=== PATIENT | female | born 1940 | race Caucasian/White ===

== ENCOUNTER 2017-05-29 05:41 | Inpatient (IN) | payer OTHER ==
[~2017-05-29] VITALS: Ht 160 cm; Wt 86.6 kg
[~2017-05-29 05:41] MED LIST: ADVIL200 MG PO; AMARYL2 MG PO; ATIVAN0.5 MG PO; DIOVAN160 MG PO; FLEXERIL10 MG PO; GLUCOPHAGE500 MG PO; LORCET 5-325 M1 EACH PO; LYRICA75 MG PO; SYNTHROID25 MCG PO; ULTRACET1 TABLET PO; WESTCORT 0.2% C15 GM TP; ZETIA10 MG PO; ZOLOFT50 MG PO
[2017-05-29 06:41] LABS: POINT-OF-CARE METER ID UU13113819
[2017-05-29 07:15] VITALS: BP 173/74
[2017-05-29 11:04] LABS: POINT-OF-CARE METER ID UU13113675
[2017-05-29 13:09] VITALS: BP 135/67
[2017-05-29 16:39] VITALS: BP 155/69
[2017-05-29 19:07] VITALS: BP 140/66
[2017-05-29 23:00] VITALS: BP 126/60
[2017-05-30 03:11] VITALS: BP 113/56
[2017-05-30] MEDS ORDERED: LORCET 5-325 M1 EACH PO (08:08)
[2017-05-30] MEDS ORDERED: FLEXERIL10 MG PO (08:08)
[2017-05-30 08:26] VITALS: BP 125/60
== END 2017-05-30 10:33 | disposition home or self-care (01) | DRG 517 ==
LOC: SDC 05:41 → ENRESERV 11:41 → 2SOUTH 11:42 → ENRESERV 11:51 → 3EAST 12:43
PROVIDERS: Neurological Surgery
PROC: 01NB0ZZ Release Lumbar Nerve, Open Approach (ICD-10-PCS; principal; 2017-05-29)
DX: M48.06 Spinal stenosis, lumbar region (principal); M46.86 Other specified inflammatory spondylopathies, lumbar region; M54.16 Radiculopathy, lumbar region; I10 Essential (primary) hypertension; E78.00 Pure hypercholesterolemia, unspecified; E11.9 Type 2 diabetes mellitus without complications; E03.9 Hypothyroidism, unspecified; M81.0 Age-related osteoporosis without current pathological fracture; M19.90 Unspecified osteoarthritis, unspecified site; H40.9 Unspecified glaucoma; F32.9 Major depressive disorder, single episode, unspecified; F41.9 Anxiety disorder, unspecified; Z85.3 Personal history of malignant neoplasm of breast; Z96.653 Presence of artificial knee joint, bilateral
CPT/HCPCS: 72020; 76000; 82948; 93005; J1100; J1170; J1885; J2405; J2710; J2765; J3010; J3480